=== PATIENT | female | born 1970 | race African-American/Black ===

== ENCOUNTER → 2018-04-15 | Outpatient (CLI) | payer OTHER ==
[2015-05-04 10:03] VITALS: BP 99/68
[~2018-04-15] MED LIST: ALEVE PO; ASCO500T PO; CHOL500016 PO; CYAN10005 PO; LOSA25TA5 PO; NORE-68 PO; OXYC-323 PO; PNV1TABL34 PO
--- NOTE | 2018-04-15 14:13 | KCIC ---
Bilateral digital screening mammograms: Reason for examination: Routine screening. Comparison is made to previous studies dated 03/28/2016 and 03/15/2015. Interpretation was made with the benefit of CAD. The skin and nipples show no abnormalities. No abnormal axillary lymph nodes are seen. The breast parenchyma is heterogeneously dense. (Breast density: Category C.) There continues to be a small intramammary lymph node at the 2:00 C position of the left breast. There are no new dominant masses, suspicious calcifications or architectural distortion. Impression: No evidence of malignancy. Recommend routine screening. Your patient's mammogram demonstrates that she has dense breast tissue (breast density category C or D), which could hide abnormalities, and if she has other risk factors for breast cancer that have been identified, she might benefit from supplemental screening tests that may be suggested by you as her ordering physician. Dense breast tissue, in and of itself, is a relatively common condition. Therefore, this information is not provided to cause undue concern, but rather to raise your awareness and to promote discussion with your patient regarding the presence of other risk factors, in addition to dense breast tissue. Your patient's mammography results will be sent to her. BI-RAD Category 2: Benign. "Our facility is accredited by the [employer] Mammography Program." This patient's information has been entered into a reminder system for the patient to be notified with the results of her examination and a target date for the next mammogram. Electronically signed by: Fay Vernon MD (04/15/2018 2:09 PM) [facility]
== END | disposition home or self-care (01) ==
LOC: KCIC MAMMO 13:20
PROVIDERS: ATTEND Family Medicine
DX: Z12.31 Encounter for screening mammogram for malignant neoplasm of breast (principal)
CPT/HCPCS: 77067

== ENCOUNTER → 2018-06-27 | Outpatient (CLI) | payer OTHER ==
[2015-05-04 10:03] VITALS: BP 99/68
[~2018-06-27] MED LIST changes: -LOSA25TA5 PO; +LOSA25TA54 PO; -OXYC-323 PO; +OXYC1TAB15 PO
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
== END | disposition home or self-care (01) ==
LOC: KCIC MRI 12:56
PROVIDERS: ATTEND Family Medicine
DX: M47.892 Other spondylosis, cervical region (principal); M48.02 Spinal stenosis, cervical region; M25.78 Osteophyte, vertebrae; M50.223 Other cervical disc displacement at C6-C7 level
CPT/HCPCS: 72141

== ENCOUNTER → 2018-08-27 | Outpatient (CLI) | payer OTHER ==
[2015-05-04 10:03] VITALS: BP 99/68
--- NOTE | 2018-08-27 18:00 | KCIC ---
Left breast diagnostic digital mammograms: Reason for examination: Left breast lump for 2 weeks. Comparison is made to previous studies dated 04/15/2018 and 03/28/2016. Left breast mammograms in CC and oblique projections were obtained with 2-D imaging and 3-D tomosynthesis imaging on a Siemens Inspiration unit and reviewed on the workstation. Interpretation was made with the benefit of CAD. The skin and nipple show no abnormalities. No abnormal axillary lymph nodes are seen. The breast parenchyma is heterogeneously dense. (Breast density: Category C.) There appears to be a small nodule consistent with intramammary lymph node in the 2:00 C position which corresponds to the area of the clinically palpable abnormality. This lymph node was present previously and is not changed. There is also suggestion of a few small nodular parenchymal densities which may represent small cystic or fibrocystic lesions but will be further evaluated with ultrasound. There are no suspicious calcifications. Impression: Small nodule consistent with an intramammary lymph node appears to correlate with the area of clinical concern but this is stable mammographically. Additional small nodular lesion suggested which will be further evaluated with ultrasound. Your patient's mammogram demonstrates that she has dense breast tissue (breast density category C or D), which could hide abnormalities, and if she has other risk factors for breast cancer that have been identified, she might benefit from supplemental screening tests that may be suggested by you as her ordering physician. Dense breast tissue, in and of itself, is a relatively common condition. Therefore, this information is not provided to cause undue concern, but rather to raise your awareness and to promote discussion with your patient regarding the presence of other risk factors, in addition to dense breast tissue. Your patient's mammography results will be sent to her. BI-RAD Category 0: Incomplete. Needs additional imaging evaluation. Left breast ultrasound: Comparison is made to previous study dated 03/25/2015. Left whole breast ultrasound including evaluation of all 4 quadrants and the retroareolar and axillary regions of the left breast was performed. In the 2:00 position 15 cm from the nipple and corresponding to the area of clinical concern, there is an intramammary lymph node present measuring 7.4 mm in greatest dimension. This lymph node was seen previously and is unchanged. There is some focal fibrocystic type changes at the 10:00 B position 6 cm from the nipple. In the 10:00 position 3 cm from the nipple, there is an additional focus of fibrocystic change. No other cystic or solid lesions are seen. No abnormal appearing lymph nodes are seen in the left axilla. IMPRESSION: 7.4 mm intramammary lymph node corresponds to the area of clinical concern and is stable both mammographically and sonographically. Fibrocystic type changes at the 10:00 position both 6 cm and 3 cm from the nipple. No suspicious-appearing lesion seen. Recommend 6 month follow-up with mammograms and ultrasound. BI-RADS Category 3: Probably Benign. "Our facility is accredited by the [employer] Mammography [employer]." This patient's information has been entered into a reminder system for the patient to be notified with the results of her examination and a target date for the next mammogram. Electronically signed by: Fay Vernon MD (08/27/2018 5:57 PM) [facility]
== END | disposition home or self-care (01) ==
LOC: KCIC MAMMO 13:05
PROVIDERS: ATTEND Nurse Practitioner
DX: N63.21 Unspecified lump in the left breast, upper outer quadrant (principal)
CPT/HCPCS: 76641; 77065; G0279; 77061

== ENCOUNTER → 2018-12-26 | Outpatient (CLI) | payer OTHER ==
[2015-05-04 10:03] VITALS: BP 99/68
--- NOTE | 2018-12-26 12:07 | KCIC ---
Examination: MRI of the left knee without contrast HISTORY: History of left knee pain COMPARISON: 06/22/2016 FINDINGS: The anterior cruciate ligament, posterior cruciate ligament appear intact. There is blunting of the body of the medial meniscus likely prior surgical change. The lateral meniscus appears intact. The medial collateral ligament appears intact. The lateral collateral ligament complex including the fibular collateral ligament, biceps femoris tendon, popliteus tendon appear intact. The extensor mechanism is intact. There is fissuring of cartilage in the patellofemoral compartment. There is mild fraying of cartilage identified in the medial compartment. Small knee joint effusion is identified. Increased T2 signal identified in the Hoffa's fat pad laterally. The extensor mechanism appear intact. Small subchondral cystic changes identified in the posterior medial femoral condyle with overlying cartilage fraying. Moderate joint space loss identified in the medial, lateral, patellofemoral compartments. IMPRESSION: 1. Increased T2 signal identified in the lateral Hoffa's fat pad deep to the patella. Correlate for impingement. 2. Blunting of the body of the medial meniscus probably postsurgical changes. 3. Grade II chondromalacia patella. 4. Small knee joint effusion. 5. Moderate tricompartmental degenerative changes. Electronically signed by: Sarbjit Martin MD (12/26/2018 12:04 PM) [id number]
== END | disposition home or self-care (01) ==
LOC: KCIC MRI 10:55
PROVIDERS: ATTEND Orthopaedic Surgery
DX: M17.12 Unilateral primary osteoarthritis, left knee (principal); M22.42 Chondromalacia patellae, left knee; M25.462 Effusion, left knee
CPT/HCPCS: 73721

== ENCOUNTER → 2020-06-24 | Outpatient (CLI) | payer BC ==
[2015-05-04 10:03] VITALS: BP 99/68
[~2020-06-24] MED LIST changes: +ACET-1871 PO; -ASCO500T PO; +ASCO500T53 PO; +CALC-722 PO; +CYAN-25 PO; -CYAN10005 PO; +HYDR25TA10 PO; +LOSA100T14 PO
== END ==
LOC: LAB 10:45
PROVIDERS: ATTEND Obstetrics & Gynecology
DX: Z01.812 Encounter for preprocedural laboratory examination (principal); Z20.828 Contact with and (suspected) exposure to other viral communicable diseases
CPT/HCPCS: U0003

== ENCOUNTER 2020-06-30 06:11 | Day surgery (SDC) | payer BC, OTHER ==
[~2020-06-30] VITALS: Ht 157.5 cm; Wt 79.8 kg
[~2020-06-30 06:11] MED LIST changes: +BUPIVACAINE-EPI 0.25%-1:200000 MPF 30 ML VIAL. INJ ONE; +HYDROmorphone 2 MG/ML VIAL IVP PRN; +MORPHINE SULFATE 2 MG/ML VIAL. IVP PRN; +PROCHLORPERAZINE 10 MG/2 ML VIAL. IVP PRN; +fentaNYL PF VIAL 100 MCG/2 ML VIAL IVP PRN
[2020-06-30] MEDS: IV RINGERS,LACTATED 1000ML 1,000 ML IV SCH (06:36)
[2020-06-30 06:54] LABS: BASO % 1 % (0-3); EOS # 0.1 x10^3/uL (0.0-0.7); EOS % 3 % (0-3); HEMATOCRIT 33.5 % (36.0-47.0); HEMOGLOBIN 11.1 g/dL (12.0-15.5); LYMPH # 1.4 x10^3/uL (1.0-4.8); LYMPH % 32 % (24-48); MEAN CORPUSCULAR HEMOGLOBIN 27 pg (25-35); MEAN CORPUSCULAR HGB CONC 33 g/dL (31-37); MEAN CORPUSCULAR VOLUME 81 fL (79-100); MONO # 0.4 x10^3/uL (0.0-1.1); MONO % 9 % (0-9); NEUT # 2.5 x10^3/uL (1.8-7.7); NEUT % 55 % (31-73); PLATELET COUNT 263 x10^3/uL (140-400); RED BLOOD COUNT 4.12 x10^6/uL (3.50-5.40); RED CELL DISTRIBUTION WIDTH 15.8 % (11.5-14.5); WHITE BLOOD COUNT 4.4 x10^3/uL (4.0-11.0)
[2020-06-30] MEDS ORDERED: METHYLENE BLUE 0.5% 10ml AMPULE. ONE (07:20)
[2020-06-30] MEDS ORDERED: ROCURONIUM 50 MG/5 ML VIAL. ONE (07:22)
[2020-06-30] MEDS ORDERED: DEXAMETHASONE SOD PHOS 4 MG/ML VIAL ONE (07:23)
[2020-06-30] MEDS ORDERED: MIDAZOLAM HCL/PF 2 MG/2 ML VIAL. ONE (07:23)
[2020-06-30] MEDS ORDERED: LIDOCAINE 2% PF 5 ML VIAL. ONE (07:23)
[2020-06-30] MEDS ORDERED: ONDANSETRON PF 4 MG/2 ML VIAL. ONE ×2 (07:23→11:13)
[2020-06-30] MEDS ORDERED: SEVOFLURANE 61 TO 120 MINUTES. IH ONE (07:23)
[2020-06-30] MEDS ORDERED: fentaNYL PF VIAL 100 MCG/2 ML VIAL ONE ×2 (07:23→10:21)
[2020-06-30] MEDS ORDERED: PROPOFOL 10 MG/ML (20ML) VIAL. IV ONE (07:23)
[2020-06-30] MEDS ORDERED: KETOROLAC 30 MG/ML VIAL. ONE (07:55)
[2020-06-30] MEDS ORDERED: NEOSTIGMINE METHYLSULFATE 5 MG/5 ML SYRINGE. ONE (07:56)
[2020-06-30] MEDS ORDERED: GLYCOPYRROLATE 1 MG/5 ML VIAL. ONE (07:56)
[2020-06-30] MEDS: BUPIVACAINE-EPI 0.25%-1:200000 MPF 30 ML VIAL. INJ ONE (08:21)
[2020-06-30] MEDS ORDERED: MAG HYDROX/ALUMINUM HYD/SIMETH 30 ML ORAL.SUSP PO PRN (09:30)
[2020-06-30] MEDS ORDERED: 0.9 % SODIUM CHLORIDE 10 ML DISP.SYRIN. IV PRN (09:30)
[2020-06-30] MEDS ORDERED: oxyCODONE/APAP 5/325 1 TAB TABLET PO PRN (09:30)
[2020-06-30] MEDS ORDERED: diphenhydrAMINE 50 MG/ML VIAL IV PRN (09:30)
[2020-06-30] MEDS ORDERED: NALOXONE 0.4 MG/ML VIAL. IV PRN (09:30)
[2020-06-30] MEDS ORDERED: diphenhydrAMINE HCL 25 MG CAPSULE PO PRN (09:30)
[2020-06-30] MEDS ORDERED: SIMETHICONE 80 MG TAB.CHEW PO PRN (09:30)
[2020-06-30] MEDS ORDERED: CALCIUM CARBONATE 500 MG TAB.CHEW PO PRN (09:30)
--- NOTE | 2020-06-30 09:38 | PDOC ---
BRIEF OPERATIVE NOTE Date: Jun 30, 2020 Pre-Op Diagnosis pelvic pain,history of right ovarian cyst Post-Op Diagnosis same plus endometriosis and adhesive disease Procedure Performed operative laparoscopy with right oopherectomy Surgeon Dr. Danay Harris Electronics Supervisor BHARTI Mariano Anesthesiologist Dr. Cabrera Anesthesia Type: General Blood Loss 15cc IV Fluid see anesthesia records Urine Output 250cc clear via yoder Specimens Obtained right ovary Findings midline small bowel adhesions; endometriosis on right ovary but free, normal appendix, grossly normal RUQ Complications none Operative Note [id number] DANAY HARRIS MD Jun 30, 2020 09:38
[2020-06-30] MEDS ORDERED: OXYC-325 PO (09:55)
[2020-06-30] MEDS ORDERED: oxyCODONE/APAP 5/325 1 TAB TABLET PO ONE (10:00)
--- NOTE | 2020-06-30 10:17 | OP ---
DATE OF SURGERY: 06/30/2020 PREOPERATIVE DIAGNOSES: Pelvic pain, history of right ovarian cyst, history of pelvic adhesive disease. POSTOPERATIVE DIAGNOSES: Pelvic pain, history of right ovarian cyst, history of pelvic adhesive disease, endometriosis on the right ovary, cyst was incidentally gone, but she had endometriosis on the right ovary. SURGEON: Shakira Harris MD PROGRAM ANALYST: BHARTI Raygoza ANESTHESIOLOGIST: Dr. Cabrera. ANESTHESIA: General. ESTIMATED BLOOD LOSS: 15 mL. URINE OUTPUT: 250 mL, clear via Zuñiga catheter. SPECIMEN: Right ovary. FINDINGS: Grossly normal right upper quadrant and appendix. She had multiple loops of small bowel adhesed to the midline of the anterior abdominal wall between the umbilicus and the suprapubic area. The right ovary had endometriosis on it, but it was free from her prior surgery. Cul-de-sac had some mild scarring in it, but the bowel was grossly normal as far as being able to move it out of the pelvis and manipulate around. COMPLICATIONS: None. DESCRIPTION OF PROCEDURE: This patient was taken to the operating room where general anesthesia was placed. The patient was placed in dorsal lithotomy position in [facility]. The patient after being drifted off to sleep, was positioned and prepped and draped in the normal sterile fashion and a Zuñiga catheter was inserted under sterile technique. Upon my arrival, a timeout was performed. Once everyone agreed on the patient, the site, the procedure, and the antibiotics, it was initiated. A sponge stick was placed in the patient's vagina. Top gloves were discarded and changed. Attention was then turned to the abdomen where a small supraumbilical skin incision was made over the existing scar. A curved Omayra was used to dissect through the subcuticular layer to the fascia. The 5 mm Visiport was used to directly enter the abdominal cavity. Opening patient pressure was 3-4 mmHg. Carbon dioxide gas was then used to appropriately insufflate the abdominal cavity to maintain a pressure of 15 mmHg. A right lower quadrant port was placed over the existing scar. It was free of anything on the inside after transilluminating the abdominal wall, it was clear of vasculature and free on the other side, so I used the same incision and put the 5 mm trocar in here. 4-5 mL of air was placed in the trocar cuff. At this point, I did move the port laterally as I could see small bowel adhesions in front of my umbilical port, but I did move it and take a picture and make sure I was indeed above the adhesions and did not touch or go near the anterior abdominal wall, small bowel adhesions, so than 3-4 mL of air was placed in the supraumbilical port as well in the trocar cuff. Once this was done, a 5 mm suprapubic port was placed under direct visualization. All of these were injected with 0.25% Marcaine with epinephrine, a total of 12 mL was used on all 3 ports. An incision was made and the 5 mm trocar was placed on this under direct visualization as well below the adhesions, so I had the supraumbilical above and the suprapubic below and then we went around it. Please see all the above findings. The right ovary was actually free. The hardest part was trying to find the ureter through all the scarring and the thickening on the sidewall, but I was able to find the vessels and see the sidewall moved under it, but it was so thickened and scarred. I did not see it directly, but I could watch when I moved my suction tan room supervisor gently tip over it. I could watch the sidewall moved and I knew the area where it should be and that was the correct area as well. Additionally, the right ovary could be pulled up, so high. I literally went right under the ovary because she had had a previous salpingectomy and went super high on the ovary literally hugging the ovary with the LigaSure, cauterizing and cutting it to remove it, staying as high on the infundibulopelvic ligament as I could. Once this was done, the 5 mm suprapubic port was removed. It was extended for the 04/12, so the EndoCatch bag could go in. The ovary was placed in this and it was removed through that port. The trocar was put back in. irrigation revealed there was some slight dripping from that suprapubic port, but the ovarian pedicle was good. The remainder of the pelvis was good. Again, I looked at the appendix, the right upper quadrant, everything else, and everything looked okay. So once the port was removed, I put my finger in that suprapubic one and I had an EndoStitch with 0 Vicryl that was put through on either side of the fascia and pulled through and I could watch the fascia closed and it was airtight and held the pneumoperitoneum as well, so I used the Endo Close to make sure I got fascia on both sides of that 04/12 suprapubic port. Once it was closed, I looked around and made sure it was not bleeding anymore. There might be a small hematoma under that one, but it looked good. It was not dripping anymore. It was dry on the abdominal side. Again, the ovarian pedicle was dry on the right side. Everything else was surgically removed from prior surgery. So it was just the right ovary we went back in for. The trocar on the right lower quadrant, a 4-5 mL of air was taken out of it, it was deflated and removed. It was hemostatic. Then, the umbilical port was deflated and the gas was released from this first and then it was removed. All three port sites were closed with 4-0 nylon at the skin. Again, they had previously been injected with 12 mL of 0.25% Marcaine with epinephrine. The Zuñiga catheter was removed. She was awakened from anesthesia and brought to recovery room in stable condition. The sponge stick from the vagina was removed by myself at the end as well. All sponge, lap and needle counts were correct x 2 by OR personnel and the patient was brought to recovery room in stable condition. SHAKIRA HARRIS MD DR: REGI/yakov JOB#: [id number] / [id number]
[2020-06-30] MEDS: oxyCODONE/APAP 5/325 1 TAB TABLET PO ONE (10:18)
[2020-06-30] MEDS: fentaNYL PF VIAL 100 MCG/2 ML VIAL IVP PRN (10:29)
[2020-06-30 10:35] LABS: HEMATOCRIT 35.6 % (36.0-47.0); HEMOGLOBIN 11.7 g/dL (12.0-15.5); RED BLOOD COUNT 4.35 x10^6/uL (3.50-5.40); RED CELL DISTRIBUTION WIDTH 16.4 % (11.5-14.5)
[2020-06-30 10:48] VITALS: BP 125/43
[2020-06-30] MEDS ORDERED: SCOPOLAMINE 1.5MG PATCH. TD ONE (11:12)
[2020-06-30] MEDS: SCOPOLAMINE 1.5MG PATCH. TD ONE (11:17)
[2020-06-30] MEDS: ONDANSETRON PF 4 MG/2 ML VIAL. IVP ONE (11:23)
[2020-06-30] MEDS ORDERED: ONDANSETRON PF 4 MG/2 ML VIAL. IM ONE (11:30)
== END 2020-06-30 11:53 | disposition home or self-care (01) ==
LOC: SURG 06:11
PROVIDERS: ATTEND Obstetrics & Gynecology
DX: N83.201 Unspecified ovarian cyst, right side (principal); D64.9 Anemia, unspecified; N73.6 Female pelvic peritoneal adhesions (postinfective); N80.1 Endometriosis of ovary; E28.0 Estrogen excess; Z88.8 Allergy status to other drugs, medicaments and biological substances; Z98.890 Other specified postprocedural states; Z79.899 Other long term (current) drug therapy
CPT/HCPCS: 36415; 58662; 85025; 85027; J0690; J1100; J1885; J2250; J2405; J2704; J2710; J3010; J3490; Q9968